=== PATIENT | female | born 1995 | race Caucasian/White ===

== ENCOUNTER 2017-03-03 08:26 | Inpatient (IN) ==
--- OUTSIDE RECORDS SUMMARY | 2017-03-03 08:33 | External Medical Summary | Continuity of Care Document ---
:1995 Author Organization [facility] Address [address] [place], [place] [id number] Phone Care Team Providers Name Role Phone Kathy Street MD Unavailable Unavailable Allergies, Adverse Reactions, Alerts Substance Reaction Severity Status No Known Drug Allergies Unknown Active Medications Medication Instructions Dosage Effective Dates (start - Status Comments stop) ORAL TABLET - Active Problems Condition Effective Dates (start - stop) Clinical Status Supervision of other high risk - pregnancies, third trimester Encounter for suprvsn of normal - , third trimester 28 weeks gestation of - Type A blood, Rh negative - Smoking (tobacco) complicating - , first trimester Encntr screen for infections w sexl - mode of transmiss Encounter for screening for oth - infec/parastc diseases Encounter for suprvsn of normal - , first trimester Encounter for screening of - mother 10 weeks gestation of - Nicotine dependence, cigarettes, - uncomplicated Supervision of other high risk - pregnancies, second trimester Type A blood, Rh negative - Supervision of other high risk - pregnancies, second trimester Encounter for suprvsn of normal - , second trimester 22 weeks gestation of - Supervision of other high risk - pregnancies, second trimester Smoking (tobacco) complicating - , second trimester 16 weeks gestation of - Type A blood, Rh negative - Supervision of other high risk - pregnancies, second trimester 26 weeks gestation of - Type A blood, Rh negative - Supervision of other high risk - pregnancies, third trimester Smoking (tobacco) complicating - , third trimester 30 weeks gestation of - Type A blood, Rh negative - Uterine size-date discrepancy, third - trimester 30 weeks gestation of - Personal history of comp of preg, chldbrth and the puerp Procedures Procedure Date Immuniz admnin, 1 vac, sngl/combo 19 Yrs + TDAP VACCINE >7 IM OB Visit No Charge Injection Administration Rhophylac 100 Units Antibody Screen, RBC Glucose test Hemoglobin count, colorimetric Hematocrit blood count Venpnctr fngr/heel/ear stick routne Results Test Name Date and Time Measure Units Reference Range Abnormal Flag Comments Panel Description: Glucose [Mass/volume] in Serum or Plasma --1 hour post 50 g glucose PO GLUCOSE, 100 mg/dL <140 N Test performed at [facility] 14:30:00 [employer] [id number] (50G)-[address] [place] [address]Pynmcnrs: MOISES LEE DO,MPH Panel Description: HEMOGLOBIN + HEMATOCRIT HEMOGLOBIN 14:30:00 11.7 g/dL 11.7-15.5 N HEMATOCRIT 14:30:00 33.7 % 35.0-45.0 L Test performed at [facility] [id number] [place] [address]Wskqdcny: MOISES LEE DO,MPH Panel Description: ANTIBODY SCREEN, RBC W/REFL ID, TITER AND AG ANTIBODY NO ANTIBODIES N Historical records indicate SCREEN, RBC 14:30:00 DETECTED the patient's plasma W/REFL ID, previously contained TITER AND AG antibodies to the D antigen.The antibody is not detectable in the current sample.Clinical correlation is suggested. Reference range No antibodies detected This assay is a screening test for the detection of red blood cell antibodies. The test is not to be used for pretransfusion screening or for the medical management of an alloimmunized . REPORT COMMENT:FASTING:NOTest performed at [facility] [id number] [place] [address]Tzznefbp: MOISES LEE DO,MPH Advance Directives Directive Yes / No Effective Date File Name Unknown Encounters Encounter Practice Location Reason(s) Diagnoses Date Provider Care Team Description For Visit Members Robin Zaidi Supervision of Dec-2 Sobbing Referring In Womens other high risk [place]. Provider: Falguni GASCA, pregnancies, 7 [address], [address], trimesterSmoking Center [address] [place] [address] (tobacco) [place], [place], complicating [address], [id number], , third [address], [place], [address]. [place] [id number] weeks Dejuan, tel: tel: gestation of [place], [phone] pregnancyType A [address], blood, Rh [place]. negative tel: [phone] Robin Zaidi Uterine size-date Nov-2 Sobbing Referring In Womens Ultrasound discrepancy, [place]. Provider: Falguni GASCA, third [email or web address] 7 [address] Kathy [address] weeks gestation [address], [address], of Center [address] [place] [address], [address] [place], [id number], 120, [place], [address]. [place] Dejuan, tel: tel: MS, [phone] [address], [place]. tel: [phone] Robin Zaidi Supervision of Nov-0 Sobbing Referring In Womens other high risk [place]. Provider: Falguni GASCA, pregnancies, 7 [address], [address], trimesterEncounte Center [address] [place] [address], r for suprvsn [place], [place], normal , [facility], [id number], third [email or web address] 120, [place], [address]. [place] weeks gestation Dejuan, tel: tel: of pregnancyType [place], [phone] [phone] A [place], [place] [address], negative [place]. tel:[phone] Robin Zaidi Supervision of Oct-2 Sobbing Referring In Womens other high risk [place]. Provider: Health PA, pregnancies, 7 700 Kathy [address], 1522, [id number] weeks Center [address] [place], gestation of [facility], [place], [place], pregnancyType A [address], [id number], blood, [place] 120, [place], [address]. [place] negative Dejuan, tel:+ tel:[phone] [place], [phone] [address], [place]. tel:[phone] Robin Zaidi Nicotine Sep-2 Sobbing Referring In Womens dependence, [place]. Provider: Falguni GASCA, cigarettes, 7 700 Kathy [address], 1522, rvision of other Center [address] [facility], high risk [place], [place], pregnancies, [address], [id number], second [address], [address]. [place] trimesterType A Dejuan, tel: tel:+[phone] blood, [place], [phone] [phone] negative [id number], [place]. tel:[phone] Robin Zaidi Supervision of Sep-2 Sobbing Referring In Womens Ultrasound other high risk [place]. Provider: Falguni PA, pregnancies, 7 700 [address], 15[address], trimesterEncounte Center [address] [facility], r for suprvsn of [place], [place], normal , [address], [id number], second [address], [address]. [place] [email or web address] weeks Dejuan, tel:+ tel:[phone] gestation of [place], [phone] [address], [place]. tel:[phone] Robin Zaidi Supervision of Aug-2 Sobbing Referring In Womens other high risk [place]. Provider: Health PA, pregnancies, 7 700 Kathy [address], 1522, trimesterSmoking Center [address] [facility], (tobacco) [place], complicating [address], [id number], , second [address], [address]. [place] [email or web address] weeks Dejuan, tel: tel: gestation of [place], [phone] pregnancyType A [address], blood, Rh [place]. negative tel: [phone] Associates [facility]an Smoking (tobacco) Sobbing Referring In Womens complicating 0-201 [place]. Provider: Health [place], , first 7 [address], 1522, screen for Center [address] [place], infections w [place], [place], mode of [address], [id number], transmissEncounte [address] [place] [address], [address]. [place] r for screening Dejuan, tel: tel: for oth [place], [phone] infec/parastc [address], diseasesEncounter [place]. for suprvsn of tel: normal , [phone] first trimesterEncounte r for screening of [id number] weeks gestation of Associates Dejuan Personal history [place] Referring In Womens of comp of preg, 8-201 [facility]. Provider: Health CAMPOS, chldbrth and the 7 [address], [address], Center [address], [place], [place], [facility], [place], [id number], [place], [address]. [place], tel: tel: [phone] , [place]. tel: [phone] Family History Family Member Diagnosis Age At Onset Maternal grandfather Colon Cancer Mother Cervical Cancer No family history of Uterine Cancer Maternal Grandmother Lung Disease No family history of Epilepsy No family history of Ovarian Cancer Mother Thyroid Disorder No family history of Pulmonary Embolism No family history of Breast Cancer No family history of Venous Thrombosis Paternal Grandmother Lung Disease No family history of Kidney Disease No family history of Osteoporosis Immunizations Vaccine Date Status Comments Tdap completed Source: New Immunization Record Rhophylac completed Source: New Immunization Record Influenza, injectable, completed Source: New Immunization Record quadrivalent, preservative free, 3 yrs or older Payers Payer name Insurance type Covered democrat ID Authorization(s) BCBS Out [place] BL [id number] [employer] [place] [id number] [employer] [place] [id number] [employer] [place] [id number] Social History Type Description Quantity Date Captured Alcohol Use Details No Caffeine Use Details Unknown Tobacco Use Status Smoking Status Current every day smoker Vital Signs Date / Height Weight BMI Pulse Blood Temperature Respiratory Body Head BMI Time: Rate Pressure Rate Surface Circumference percentile Area 131.00 21.8 114/ lbs 0 mm[Hg] 1:45 kg/m PM eter (2) Chief Complaint And Reason For Visit Unknown Chief Complaint And Reason For Visit Reason For Referral Reason For Referral Unknown Plan Of Care Date Type Action Status Goal Tobacco cessation counseling completed Goal Tobacco cessation counseling completed Appointment Khushi Singh BOOKED Future Order: Radiology Order Complete OB Ultrasound > 14 Ordered Weeks ([id number]) Future Order: Radiology Order Ultrasound OB Follow-up ([id number]) Ordered Date Type Problem Goal Intervention Status Start Date Unknown. History Of Present Illness Encounter Date Complaint History Of Present Illness This patient has no known history of present illness Functional Status Encounter Date Functional Assessment Cognitive Assessment Unknown Medications Administered Medication Instructions Dosage Effective Dates (start - stop) Status Comments Drug Treatment Unknown Instructions Date Instruction Additional Information HIV and other routine tests risk factors identified by history anticipated course of care nutrition and weight gain counseling, special diet toxoplasmosis precautions (cats / raw meat) exercise indications for ultrasound influenza vaccine environmental / work hazards travel tobacco (ask, advise, assess, assist and arrange) alcohol illicit / recreational drugs use of any medications (including supplements, vitamins, herbs, OTC drugs) smoking counseling domestic violence seat belt use childbirth classes / hospital facilities hospital registration genetic testing new ob handbook sexual activity
--- OUTSIDE RECORDS SUMMARY | 2017-03-03 08:33 | External Medical Summary | Continuity of Care Document ---
:1994 Author Organization [facility] Address [address] [place], [place] [id number] Phone Care Team Providers Name Role Phone [...] - Type A blood, Rh negative - Personal history of comp of preg, chldbrth and the puerp Procedures Procedure Date OB Visit No Charge Immuniz admnin, 1 vac, sngl/combo 19 Yrs + Flu Vaccine - Quadrivalent Results Test Name Date and Time Measure Units Reference Range Abnormal Flag Comments Unknown Advance Directives Directive Yes / No Effective Date File Name Unknown Encounters Encounter Practice Location Reason(s) Diagnoses Date Provider Care Team Description For Visit Members Robin Zaidi Supervision of Sobbing Referring In Womens other high risk [place]. Provider: Falguni GASCA, pregnancies, 7 [address], [address], trimesterEncounte [address], for suprvsn of [place], [place], normal , [facility], , third [id number] [address], [place], [address]. [place] weeks gestation Dejuan, tel: tel: of pregnancyType [place], [phone] 476178 [place], [place] [address], negative [place]. tel: [phone] Robin Zaidi Supervision of Sobbing Referring In Womens other high risk [place]. Provider: Falguni GASCA, pregnancies, 7 [address], 1522, [email or web address] weeks Center [address] [place] [address], gestation of [place], [place], pregnancyType A [facility], [id number], blood, [place] [address], [address]. [place] negative Dejuan, tel: tel:[phone] [place], [phone] [address], [place]. tel: [phone] Robin Zaidi Nicotine Sep-2 Sobbing Referring In Womens dependence, [place]. Provider: Falguni GASCA, cigarettes, 7 [address], 1522, rvision of other [place] [address] [facility], high risk [place], [place], pregnancies, [address], [id number], second [address], [address]. [place] trimesterType A Dejuan, tel: tel: blood, Rh [place], [phone] [phone] negative [address], [place]. tel: [phone] Robin Zaidi Supervision of Oct- Sobbing Referring In Womens Ultrasound other high risk 8- [place]. Provider: Falguni GASCA, pregnancies, 7 [address], 15[address], trimesterEncounte Center [address] [place], r for suprvsn of [place], normal , [facility], [id number], [place] [address], [address]. [place] [email or web address] weeks Zaidi, tel:+ tel:+316 gestation of [place], 6263514 827232 [address], [place]. tel: [phone] Robin Zaidi Supervision of Sobbing Referring In Womens other high risk 2-201 [place]. Provider: Falguni GASCA, pregnancies, 7 700 [address], 15[address], trimesterSmoking Center [address] [place], (tobacco) [place], [place], complicating [address], [id number], , second [address], [address]. [place] [email or web address] weeks Zaidi, tel: tel:+316 gestation of [place], [phone] 951156 pregnancyType A [address], blood, Rh [place]. negative tel: [phone] Robin Zaidi Smoking (tobacco) Sobbing Referring In Womens complicating 0-201 [place]. Provider: Falguni GASCA, , first 7 [address], [address], screen for Center [address] [place], infections w sexl [place], [place], mode of [address], [id number], trans[place]Encounte [address], [address]. [place] r for screening Zaidi, tel: tel:+[phone] for oth [place], [phone] infec/parastc [address], diseasesEncounter [place]. for suprvsn of tel: normal , [phone] first trimesterEncounte r for screening of [id number] weeks gestation of Associates Dejuan Personal history Apr-2 [place] Referring In Womens of comp of preg, 8- [place]. Provider: Health CAMPOS, [place] and the 7 700 Kathy [facility] L, 1522, Center [address], [place], [place], 120, [place], [id number], [place], [address]. [place], tel:+258 tel:[phone] [address] , [place]. tel:[phone] Family History Family Member Diagnosis Age At [...] older Payers Payer name Insurance type Covered constitution party ID Authorization(s) BCBS Out Of [place] [id number] BCBS Out [place] [id number] BC[employer] [place] [id number] BC[employer] [place] [id number] Social History Type Description Quantity Date Captured Alcohol Use Details No Caffeine Use Details Unknown Tobacco Use Status Smoking Status Current every day smoker Vital Signs Date / Height Weight BMI Pulse Blood Temperature Respiratory Body Head BMI Time: Rate Pressure Rate Surface Circumference percentile Area 128.60 21.4 lbs 0 mm[Hg] 2:46 kg/m PM eter (2) Chief Complaint And Reason For Visit Unknown Chief Complaint And Reason For Visit Reason For Referral Reason For Referral Unknown Plan Of Care Date Type Action Status Goal Tobacco cessation counseling completed Goal Tobacco cessation counseling completed Appointment Khushi Singh BOOKED Appointment Khushi Singh BOOKED Future Order: Radiology Order Complete OB Ultrasound > 14 Ordered Weeks ([id number]) Date Type Problem Goal Intervention Status Start [...]
--- OUTSIDE RECORDS SUMMARY | 2017-03-03 08:33 | External Medical Summary | Continuity of Care Document ---
:1994 Author Organization [facility] Address [address] [place], [place] [address] Phone Care Team Providers Name Role Phone Kathy Street MD Unavailable Unavailable Allergies, Adverse Reactions, Alerts Substance Reaction Severity Status No Known Drug Allergies Unknown Active Medications Medication Instructions Dosage Effective Dates (start - Status Comments stop) ORAL TABLET - Active Problems Condition Effective Dates (start - stop) Clinical Status Smoking (tobacco) complicating - , first trimester Encntr screen for infections w sexl - mode of transmiss Encounter for screening for oth - infec/parastc diseases Encounter for suprvsn of normal - , first trimester Encounter for screening of - mother 10 weeks gestation of - Personal history of comp of preg, chldbrth and the puerp Procedures Procedure Date Unknown Results Test Name Date and Time Measure Units Reference Range Abnormal Flag Comments Unknown Advance Directives Directive Yes / No Effective Date File Name Unknown Encounters Encounter Practice Location Reason(s) Diagnoses Date Provider Care Team Description For Visit Members [facility] Sobbing In Womens 3-201 [place]. Health [place], 7 700 [address], [place], [place], [address] [id number], 120, [place] Dejuan, tel:+[phone] [place], [phone], [place]. tel:[phone] Robin Zaidi Smoking (tobacco) Sobbing Referring In Womens complicating 0-201 [place]. Provider: Health [place], , first 7 700 Kathy [address] trimesterEncntr Medical Jad Hernandez, 1522, screen for Center [address] [place], infections w [address], [place], mode of [address] [place], [id number], transmissEncounter [address], [place], [address]. [place] for screening for Zaidi, tel: tel: ot infec/parastc [place], [phone] diseasesEncounter [address], for suprvsn of [place]. normal , tel: first [phone] trimesterEncounter for screening of [id number] weeks gestation of Associates Dejuan Personal history of [place] Referring In Womens comp of preg, 8 [place]. Provider: Health [place], [place] and the 7 700 [facility] L, 1522, Center [address], [place], [place], 120, [place], [id number], [place], [address]. [place], tel: tel: [phone] , [place]. tel: [phone] Family History Family Member Diagnosis Age At [...] of Osteoporosis Immunizations Vaccine Date Status Comments Unknown Payers Payer name Insurance type Covered constitution party ID Authorization(s) BCBS Out Of [place] [id number] Social History Type Description Quantity Date Captured Unknown Vital Signs Date / Height Weight BMI Pulse Blood Temperature Respiratory Body Head BMI Time: Rate Pressure Rate Surface Circumference percentile Area Unknown Chief Complaint And Reason For Visit Unknown Chief Complaint And Reason For Visit Reason For Referral Reason For Referral Unknown Plan Of Care Date Type Action Status Goal Tobacco cessation counseling completed Goal Tobacco cessation counseling completed Appointment Khushi Singh BOOKED Date Type Problem Goal Intervention Status Start [...] influenza vaccine environmental / work hazards travel sexual activity tobacco (ask, advise, assess, assist and arrange) alcohol illicit / recreational drugs use of any medications (including supplements, vitamins, herbs, OTC drugs) smoking counseling domestic violence seat belt use childbirth classes / hospital facilities hospital registration genetic testing new ob handbook
--- OUTSIDE RECORDS SUMMARY | 2017-03-03 08:33 | External Medical Summary | Continuity of Care Document ---
:1994 Author Organization [facility] Address [address] [place], [place] [address] Phone Care Team Providers Name Role Phone Kathy Street MD Unavailable Unavailable Allergies, Adverse Reactions, Alerts Substance Reaction Severity Status No Known Drug Allergies Unknown Active Medications Medication Instructions Dosage Effective Dates (start - Status Comments stop) ORAL TABLET - Active Problems Condition Effective Dates (start - stop) Clinical Status Supervision of other high risk - pregnancies, third trimester Low weight gain in , third - trimester Smoking (tobacco) complicating - , third trimester Type A blood, Rh negative - Smoking [...] other high risk - pregnancies, third trimester Low weight gain in , third - trimester 35 weeks gestation of - Type A blood, Rh negative - Supervision of other high risk - pregnancies, third trimester Encounter for suprvsn of normal - , third trimester 28 weeks gestation of - Type A blood, Rh negative - Low weight gain in , third - trimester 35 weeks gestation of - Uterine size-date discrepancy, third - trimester 30 weeks gestation of - Personal history of comp of preg, chldbrth and the puerp Procedures Procedure Date OB Visit No Charge Results Test Name Date and Time Measure Units Reference Range Abnormal Flag Comments Unknown Advance Directives Directive Yes / No Effective Date File Name Unknown Encounters Encounter Practice Location Reason(s) Diagnoses Date Provider Care Team Description For Visit Members [facility] Supervision of Sobbing Referring In Womens other high risk [place]. Provider: Falguni GASCA, pregnancies, [address], 1522, trimesterLow Center [facility], weight gain in [place], , third [address] [place], [id number], [email or web address] weeks 120, [place], [address]. [place] gestation of Zaidi, tel:+620 tel:+316 pregnancyType [place], [id number] blood, Rh 13340, negative [place]. tel: [phone] Robin Zaidi Low weight gain Jan- Sobbing Referring In Womens Ultrasound in , [place]. Provider: Falguni GASCA, third [email or web address] [address] weeks gestation Medical Jad L, 1522, of Center [address] [facility], [place], [place], [address] [place], [id number], 120, [place], [address]. [place] Dejuan, tel: tel:316 [place], [phone] [address], [place]. tel: [phone] Robin Zaidi Supervision of Jan- Sobbing Referring In Womens other high risk [place]. Provider: Health PA, pregnancies, [address], 1522, trimesterLow Center [address] [facility], weight gain in [place], , third [address] [place], [id number], trimester[place]oking 120[place], [address]. [place] (tobacco) Dejuan, tel: tel: complicating [place], [phone] , third [address], trimesterType A [place]. blood, Rh tel: negative [phone] Robin Zaidi Supervision of Dec-2 Sobbing Referring In Womens other high risk [place]. Provider: Health PA, pregnancies, [address], 1522, trimesterSmoking Center [address] [facility], (tobacco) [place], complicating [address] [place], [id number], , third 120[place], [address]. [place] [email or web address] weeks Dejuan, tel: tel:3162 gestation of [place], [phone] [phone] pregnancyType A [address], blood, Rh [place]. negative tel: [phone] Robin Zaidi Uterine size-date Dec-2 Sobbing Referring In Womens Ultrasound discrepancy, [place]. Provider: Health PA, third [email or web address] [address] weeks gestation [address], 1522, of Center [facility] S [place], [address] [place], [id number], 120, [place], [address]. [place] Dejuan, tel: tel:+3162 [place], [phone] [address], [place]. tel: [phone] Robin Zaidi Supervision of Nov-0 Sobbing Referring In Womens other high risk [place]. Provider: Health PA, pregnancies, 7 [address], 15[address], trimesterEncounte Center [address] [place], r for suprvsn of [place], normal , [facility], [id number], third [email or web address] 120, [place], [address]. [place] weeks gestation Zaidi, tel:+ tel:+3162 of pregnancyType [place], [id number] 452005 A blood, Rh [address], negative [place]. tel: [phone] Robin Zaidi Supervision of Oct-2 Sobbing Referring In Womens other high risk [place]. Provider: Health PA, pregnancies, [address], 1522, [email or web address] weeks Center [address] [place], gestation of [place], pregnancyType A [facility], [id number], blood, [place] 120[place], [address]. [place] negative Dejuan, tel: tel:+3162 [place], [phone] 878754 [address], [place]. tel: [phone] Robin Zaidi Nicotine Sep-2 Sobbing Referring In Womens dependence, [place]. Provider: Health PA, cigarettes, [address], 1522, rvision of other Center [address] [place], high risk [place], pregnancies, [address] [place], [id number], second 120[place], [address]. [place] trimesterType A Zaidi, tel:+ tel:+3162 blood, [place], [phone] negative [address], [place]. tel: [phone] Robin Zaidi Supervision of Sep-2 Sobbing Referring In Womens Ultrasound other high risk [place]. Provider: Health PA, pregnancies, 7 [address], 1522, trimesterEncounte Center [address] [place], [facility] [place], normal , [facility], [id number], second [address], [address]. [place] [email or web address] weeks Dejuan, tel:+ tel:+3162 gestation of [place], [phone] 771365 [address], [place]. tel: [phone] Robin Zaidi Supervision of Aug-2 Sobbing Referring In Womens other high risk 2-201 [place]. Provider: Health CAMPOS, pregnancies, [address], 1522, trimesterSmoking Center [address] [place], (tobacco) [place], complicating [address] [place], [id number], , second [address], [address]. [place] [email or web address] weeks Zaidi, tel: tel: gestation of [place], [phone] pregnancyType A [address], blood, Rh [place]. negative tel: [phone] [facility] Smoking (tobacco) Sobbing Referring In Womens complicating 0-201 [place]. Provider: Falguni GASCA, , first [address], 1522, screen for Center [address] [place], infections w sexl [place], mode of [address] [place], [id number], trans[place]oun[place] [address], [address]. [place] r for screening Zaidi, tel: tel: for oth [place], [phone] infec/parastc 61973, diseasesEncounter [place]. for suprvsn of tel: normal , [phone] first trimesterEncounte r for screening of [id number] weeks gestation of [facility] Personal history Apr-2 [place] Referring In Womens of comp of preg, 8-201 [place]. Provider: Falguni GASCA, franklin and the [address], 15[address], Center [address], [place], [place], 120, [place], [id number], [place], [address]. [place], tel: tel: [phone] , [place]. tel: [phone] Family History Family Member Diagnosis Age At [...] party ID Authorization(s) BCBS Out Of State [id number] BCBS Out Of State [id number] BCBS Out Of [place] [id number] BCBS Out Of [place] [id number] Social History Type Description Quantity Date Captured Alcohol Use Details No Caffeine Use Details Unknown Tobacco Use Status Smoking Status Current every day smoker Vital Signs Date / Height Weight BMI Pulse Blood Temperature Respiratory Body Head BMI Time: Rate Pressure Rate Surface Circumference percentile Area 21.7 1 10:04 kg/m AM eter (2) 133.90 22.2 122/67 2017 lbs 8 mm[Hg] 10:08 kg/m AM eter (2) Chief Complaint And Reason For Visit Unknown Chief Complaint And Reason For Visit Reason For Referral Reason For Referral Unknown Plan Of Care Date Type Action Status Goal Tobacco cessation counseling completed Goal Tobacco cessation counseling completed Appointment Khushi Singh BOOKED Future Order: Radiology Order Complete OB Ultrasound > 14 Ordered Weeks ([id number]) Future Order: Radiology Order Ultrasound OB Follow-up ([id number]) Ordered Future Order: Radiology Order Ultrasound OB Follow-up ([id number]) Ordered Date Type Problem Goal Intervention Status [...]
--- OUTSIDE RECORDS SUMMARY | 2017-03-03 08:33 | External Medical Summary | Continuity of Care Document ---
:1994 Author Organization [facility] Address [address] [place], [place] [id number] Phone Care Team Providers Name Role Phone [...] Team Description For Visit Members Robin Zaidi Nicotine Sep-2 Sobbing Referring In Womens dependence, [place]. Provider: Health PA, cigarettes, [address], 1522, rvision of other Center [address] [place], high risk [place], [place], pregnancies, [address] [place], [id number], second 120[place], [address]. [place] trimesterType A Dejuan, tel:+ tel:+3162 blood, Rh [place], [phone] [id number] negative [address], [place]. tel: [phone] Robin Zaidi Supervision of Sep-2 Sobbing Referring In Womens Ultrasound other high risk [place]. Provider: Health PA, pregnancies, [address], 1522, trimesterEncounte Center [address] [place], r for suprvsn of [place], [place], normal , [address] [place], [id number], second [address], [address]. [place] [email or web address] weeks Dejuan, tel: tel:+3162 gestation of [place], [phone] [phone] [address], [place]. tel: [phone] [facility] Sep-2 Lopez In Womens [facility]- [facility]. Health [facility], [address], [address], [place], [place], [id number], , [place]. [place] tel: tel: [phone] Robin Zaidi Supervision of Aug- Sobbing Referring In Womens other high risk 2- [place]. Provider: Health PA, pregnancies, [address], 1522, trimesterSmoking Center [address] [facility], (tobacco) [place], complicating [address], [id number], , second [address], [address]. [place] [email or web address] weeks Dejuan, tel:+ tel:+3162 gestation of [place], [phone] 040600 pregnancyType A [address], blood, Rh [place]. negative tel: [phone] Robin Zaidi Smoking (tobacco) Sobbing Referring In Womens complicating 0-201 [place]. Provider: Health CAMPOS, , first [address], 1522, screen for Center [address] [place], [place], mode of [address], [id number], [place]oun[place] [address], [address]. [place] r for screening Zaidi, tel:+ tel:+3162 for oth [place], [phone] infec/parastc 31621, diseasesEncsan [facility] [place]. for suprvsn of tel: normal , [phone] first trimesterEncounte r for screening of weeks gestation of [facility] Personal history May- Mclaughlin Referring In Womens of comp of preg, 8-201 [place]. Provider: Health CAMPOS, franklin and the [address], 1522, Center [address] [facility] [place], [address], [place], [place], 120, [place], [id number], [place], [address]. [place], tel: tel: [phone] 517226 , [place]. tel: [phone] Family History Family Member Diagnosis Age At [...] Unknown Payers Payer name Insurance type Covered democrat ID Authorization(s) BC Out Of State [id number] Social History Type Description Quantity Date Captured [...] Complete OB Ultrasound > 14 Ordered Weeks (39230) Date Type Problem Goal Intervention Status Start [...]
--- OUTSIDE RECORDS SUMMARY | 2017-03-03 08:33 | External Medical Summary | Continuity of Care Document ---
:1994 Author Organization [facility] Address [address] [place], [place] [address] Phone Care Team Providers Name Role Phone Kathy Street MD Unavailable Unavailable Allergies, Adverse Reactions, Alerts Substance Reaction Severity Status No Known Drug Allergies Unknown Active Medications Medication Instructions Dosage Effective Dates (start - Status Comments stop) ORAL TABLET - Active Problems Condition Effective Dates (start - stop) Clinical Status Uterine size-date discrepancy, third - trimester 30 weeks gestation of - Smoking (tobacco) complicating - , first [...] chldbrth and the puerp Procedures Procedure Date Ultrasnd preg uterus, flwup/repeat Results Test Name Date and Time Measure Units Reference Range Abnormal Flag Comments Unknown Advance Directives Directive Yes / No Effective Date File Name Unknown Encounters Encounter Practice Location Reason(s) Diagnoses Date Provider Care Team Description For Visit Members Robin Zaidi Supervision of Sobbing Referring In Womens other high risk [place]. Provider: Health PA, pregnancies, 7 [address], 1522, trimesterLow Center [address] [facility], weight gain in [place], , third [address] [place], [id number], [place], [address]. [place] (tobacco) Dejuan, tel: tel: complicating [place], [phone] , third [address], trimesterType A [place]. blood, Rh tel: negative [phone] Robin Zaidi Supervision of Dec- Sobbing Referring In Womens other high risk [place]. Provider: Health PA, pregnancies, [address], 1522, trimesterSmoking Center [address] [facility], (tobacco) [place], [place], complicating [address] [place], [id number], , third 120[place], [address]. [place] [id number] weeks Dejuan, tel: tel:+3162 gestation of [place], [phone] 644169 pregnancyType A [address], blood, Rh [place]. negative tel:[phone] Robin Zaidi Uterine size-date Nov-2 Sobbing Referring In Womens Ultrasound discrepancy, [place]. Provider: Falguni GASCA, third [email or web address] [address] weeks gestation [address], 1522, of Center [address] [place], [place], [address] [place], [id number], 120[place], [address]. [place] Dejuan, tel: tel:+316 [place], [phone] [address], [place]. tel:+[phone] Robin Zaidi Supervision of Nov-0 Sobbing Referring In Womens other high risk [place]. Provider: Falguni GASCA, pregnancies, [address], 1522, trimesterEncounte Center [address] [facility], r for suprvsn of [place], normal , [address] [place], [id number], third [email or web address] 120, [place], [address]. [place] weeks gestation Dejuan, tel: tel: of pregnancyType [place], [phone] 111138 A blood, Rh [address], negative [place]. tel: [phone] Robin Zaidi Supervision of Oct-2 Sobbing Referring In Womens other high risk [place]. Provider: Falguni GASCA, pregnancies, [address], 1522, [email or web address] weeks Center [address] [place] [address], gestation of [place], pregnancyType A [facility], [id number], blood, [place] 120[place], [address]. [place] negative Dejuan, tel: tel:+316 [place], [phone] [phone] [address], [place]. tel:[phone] Robin Zaidi Nicotine Sep-2 Sobbing Referring In Womens dependence, [place]. Provider: Falguni GASCA, cigarettes, [address], 1522, rvision of other Center [address] [facility], high risk [place], pregnancies, [address] [place], [id number], [place] 120[place], [address]. [place] trimesterType A Dejuan, tel: tel:+ blood, Rh [place], [phone] [phone] negative [address], [place]. tel: [phone] Robin Zaidi Supervision of Oct- Sobbing Referring In Womens Ultrasound other high risk 8-201 [place]. Provider: Health PA, pregnancies, 7 [address], 1522, trimesterEncounte Center [address] [place], r for suprvsn of [place], normal , [address] [place], [id number], second 120, [place], [address]. [place] [email or web address] weeks Dejuan, tel:+ tel:+316 gestation of [place], 7746457 773250 [address], [place]. tel: [phone] Robin Zaidi Supervision of Sobbing Referring In Womens other high risk 2-201 [place]. Provider: Health PA, pregnancies, 7 [address], 1522, trimesterSmoking Center [address] [place], (tobacco) [place], [place], complicating [address] [place], [id number], , second 120[place], [address]. [place] [email or web address] weeks Dejuan, tel: tel:+316 gestation of [place], [phone] 529782 pregnancyType A [address], blood, Rh [place]. negative tel: [phone] Robin Zaidi Smoking (tobacco) Sobbing Referring In Womens complicating 0-201 [place]. Provider: Falguni GASCA, , first [address], 1522, screen for Center [address] [place], infections w sexl [place], mode of [address] [place], [id number], trans[place]ounte [address], [address]. [place] r for screening Dejuan, tel:+ tel:+316 for oth [place], [phone] infec/parastc 68583, diseasesEncounter [place]. for suprvsn of tel:+03-22 normal , [phone] first trimesterEncounte r for screening of [email or web address] weeks gestation of [facility] Personal history Apr-2 [place] Referring In Womens of comp of preg, 8- [facility]. Provider: Health CAMPOS, franklin and the 7 [address] [facility] L, 1522, Center [address], [place], [place], 120, [place], [id number], [place], [address]. [place], tel:+186 tel:[phone] [id number] 171794 , [place]. tel:+[phone] Family History Family Member Diagnosis Age At [...] older Payers Payer name Insurance type Covered republican ID Authorization(s) BCBS Out Of State [id number] BCBS Out Of [place] [id number] BCBS Out Of [place] [id number] BCBS Out Of [place] [id number] Social History Type Description Quantity Date Captured [...] Khushi Singh BOOKED Future Order: Radiology Order Ultrasound OB Follow-up ([id number]) Ordered Future Order: Radiology Order Complete OB Ultrasound > 14 Ordered Weeks ([id number]) Date Type Problem Goal Intervention Status Start [...]
--- OUTSIDE RECORDS SUMMARY | 2017-03-03 08:33 | External Medical Summary | Continuity of Care Document ---
:1994 Author Organization [facility] Address [address] [place], [place] [id number] Phone Care Team Providers Name Role Phone [...] second trimester 22 weeks gestation of - Smoking (tobacco) complicating [...] chldbrth and the puerp Procedures Procedure Date Ultrasound exam of preg uterus, complete Results Test Name Date and Time Measure Units Reference Range Abnormal Flag Comments Unknown Advance Directives Directive Yes / No Effective Date File Name Unknown Encounters Encounter Practice Location Reason(s) Diagnoses Date Provider Care Team Description For Visit Members [facility] Nicotine Sep-2 Sobbing Referring In Womens dependence, [place]. Provider: Falguni GASCA, cigarettes, [address], 1522, rvision of other Center [address] [place], high risk [facility], [place], [place], pregnancies, [address] [place], [id number], second [address], [address]. [place] trimesterType A Dejuan, tel: tel:+[phone] blood, Rh [place], [phone] negative [address], [place]. tel: [phone] Robin Zaidi Supervision of Sep-2 Sobbing Referring In Womens Ultrasound other high risk - [place]. Provider: Falguni GASCA, pregnancies, [address], 1522, trimesterEncounte Center [address] [place], r for suprvsn of [place], [place], normal , [address], , second [address], [address]. [place] weeks Dejuan, tel: tel:+3162 gestation of [place], [phone] [phone] [address], [place]. tel: [phone] Robin Zaidi Supervision of Aug- Sobbing Referring In Womens other high risk - [place]. Provider: Falguni GASCA, pregnancies, [address], 1522, trimesterSmoking Center [address] [place], (tobacco) [place], [place], complicating [address], , , second [address], [address]. [place] [email or web address] weeks Dejuan, tel:+ tel:+3162 gestation of [place], [phone] 919407 pregnancyType A [address], blood, Rh [place]. negative tel: [phone] Robin Zaidi Smoking (tobacco) Aug- Sobbing Referring In Womens complicating 0-201 [place]. Provider: Falguni GASCA, , first [address], 1522, screen for Center [address] [place], infections w sexl [place], mode of [address], [id number], trans[place]ounte [address], [address]. [place] r for screening Zaidi, tel: tel: for oth [place], [phone] infec/parastc 90039, diseasesEncounter [place]. for suprvsn of tel: normal , [phone] first trimesterEncounte r for screening of [email or web address] weeks gestation of [facility] Personal history Mclaughlin Referring In Womens of comp of preg, 8-201 [place]. Provider: Health CAMPOS, franklin and the 7 700 Kathy [facility] L, 1522, Center [address], [place], [place], 120, [place], [id number], [place], [address]. [place], tel: tel:+ [phone] [address] , [place]. tel: [phone] Family History Family Member Diagnosis Age At [...] Unknown Payers Payer name Insurance type Covered green party ID Authorization(s) BCBS Out Of State [id number] Social History Type Description Quantity Date Captured [...] Complete OB Ultrasound > 14 Ordered Weeks (00941) Date Type Problem Goal Intervention Status Start [...]
--- OUTSIDE RECORDS SUMMARY | 2017-03-03 08:33 | External Medical Summary | Clinical Summary ---
:1994 Author Organization [facility] Address [address] [place] [address] Phone Allergies No Known Allergies Current Medications Prescription Sig. Disp. Refills Start Date End Date Status docusate sodium (COLACE) take 1 capsule 0 08/10/2012 Active 100 MG capsule (100MG) by oral route every day at bedtime as needed 27-0.8 MG TABS take 1 tablet by 0 08/10/2012 Active oral route every day hydrocodone-acetaminophen take 1 tablet by 0 08/10/2012 Active (HYDROCODONE-ACETAMINOPHE oral route every 4 N) 5-325 MG - 6 hours as needed for pain ibuprofen (ADVIL,MOTRIN) take 1 tablet 0 08/10/2012 Active 800 MG tablet (800MG) by oral route 3 times every day with food .reconcile (MEDICATION No Sig 1 0 08/10/2012 Active LIST IMPORTED) Active Problems Not on file Family History Medical History Relation Name Comments Other Other Mother - Cancer, cervical Other Other Family History Comments - No history of breast, ovary, endometrial or colon cancer. Relation Name Status Comments Mother Alive Other Other Social History Tobacco Use Types Packs/Day Years Used Date Current Every Day Smoker Comments: Smoking History Packs/day: Daily/Cigarettes/1/2 pack Sex Assigned at Date Recorded Not on file Last Filed Vital Signs Vital Sign Reading Time Taken Blood Pressure 102/54 04/24/2012 10:52 AM [employer] Pulse - - Temperature - - Respiratory Rate - - Oxygen Saturation - - Inhaled Oxygen Concentration - - Weight 54 kg (119 lb) 04/25/2012 8:11 AM [employer] Height 165.7 cm (5' 5.25") 04/25/2012 8:11 AM [employer] Body Mass Index 19.65 04/25/2012 8:11 AM [employer] Plan of Treatment Health Maintenance Due Date Last Done Comments HPV Vaccines (1 of 3 - Female 3 Dose Series) 2005 Varicella Vaccines (1 of 2 - 2 Dose Adolescent Series) 06/12/2007 MenB Vaccine (Bexsero) (1 of 2) 2010 DTaP,Tdap,and Td Vaccines (1 - Tdap) 2013 CERVICAL CANCER SCREENING 06/12/2015 Influenza Vaccine (#1) 2016 Results Not on filefrom Last 3 Months
--- OUTSIDE RECORDS SUMMARY | 2017-03-03 08:34 | External Medical Summary | Continuity of Care Document ---
:1995 Author Organization [facility] Address [address] [place], [place] [id number] Phone Care Team Providers Name Role Phone [...] Sobbing Referring In Womens other high risk 1 [place]. Provider: Health PA, pregnancies, 7 [address], 1522, trimesterLow Center [address] [facility], weight gain in [place], [place], , third [address] [place], , trimesterSmoking 120[place], [address]. [place] (tobacco) Deju[place], tel:+ tel: complicating ME, [phone] , third [address], trimesterType A [place]. blood, Rh tel: negative [phone] Robin Zaidi Supervision of Sobbing Referring In Womens other high risk [place]. Provider: Health PA, pregnancies, 7 [address], 1522, trimesterSmoking Center [address] [facility], (tobacco) [place], [place], complicating [address] [place], [id number], , third 120[place], [address]. [place] [email or web address] weeks Dejuan, tel: tel:+ gestation of [place], [phone] pregnancyType A [address], blood, Rh [place]. negative tel:[phone] Robin Zaidi Uterine size-date Nov-2 Sobbing Referring In Womens Ultrasound discrepancy, [place]. Provider: Falguni GASCA, third [email or web address] [address], 15[address], of Center [address] [facility], [place], [address] [place], [id number], 120, [place], [address]. [place], tel: tel:+[phone] [place], [phone] 670974 [address], [place]. tel:[phone] Robin Zaidi Supervision of Nov-0 Sobbing Referring In Womens other high risk [place]. Provider: Falguni GASCA, pregnancies, 7 [address], 1522, trimesterEncounte Center [address] [place] [address], r for suprvsn of [place], normal , [facility], [id number], third [email or web address] 120, [place], [address]. [place] weeks gestation Dejuan, tel: tel:+ of pregnancyType ME, [phone] [id number] A blood, Rh [address], negative [place]. tel: [phone] Robin Zaidi Supervision of Oct-2 Sobbing Referring In Womens other high risk [place]. Provider: Falguni GASCA, pregnancies, [address], 1522, weeks Center [address] [place] [address], gestation of [place], [place], pregnancyType A [facility], [id number], blood, [place] 120[place], [address]. [place] negative Dejuan, tel: tel:+[phone] [place], [phone] 974167 [address], [place]. tel:[phone] Robin Zaidi Nicotine Sep-2 Sobbing Referring In Womens dependence, [place]. Provider: Falguni GASCA, cigarettes, [address], 1522, rvision of other Center [address] [facility], high risk [place], pregnancies, [address] [place], [id number], second 120[place], [address]. [place] trimesterType A Dejuan, tel: tel: blood, Rh [place], [phone] negative [address], [place]. tel: [phone] Robin Zaidi Supervision of Oct- Sobbing Referring In Womens Ultrasound other high risk 8- [place]. Provider: Falguni GASCA, pregnancies, 7 [address], 1522, trimesterEncounte Center [address] [place], r for suprvsn of [place], normal , [facility], [id number], second 120[place], [address]. [place] [email or web address] weeks [place], tel:+ tel:+316 gestation of [place], [phone] 717709 [address], [place]. tel: [phone] Robin Zaidi Supervision of Sobbing Referring In Womens other high risk 2-201 [place]. Provider: Falguni GASCA, pregnancies, 7 [address], 1522, trimesterSmoking Center [address] [place], (tobacco) [place], complicating [address], [id number], , second 120[place], [address]. [place] [email or web address] weeks [place], tel: tel:+316 gestation of ME, [phone] pregnancyType A [address], blood, Rh [place]. negative tel: [phone] Robin Zaidi Smoking (tobacco) Sobbing Referring In Womens complicating 0-201 [place]. Provider: Falguni GASCA, , first [address], 1522, screen for Center [address] [place], infections w sexl [place], [place], mode of [address] [place], [id number], trans[place]ounte [address], [address]. [place] r for screening [place], tel: tel:+316 for oth [place], [phone] infec/parastc [address], diseasesEncounter [place]. for suprvsn of tel: normal , [phone] first trimesterEncounte r for screening of weeks gestation of Associates Dejuan Personal history Apr-2 [place]cl[place] Referring In Womens of comp of preg, 8- Lula. Provider: Health CAMPOS, [place] and the 7 [address] [facility] L, 1522, Center [address], [place], [place], 120, [place], [id number], [place], [address]. [place], tel:+643 tel:[phone] [phone] , [place]. tel:[phone] Family History Family Member Diagnosis Age At [...] party ID Authorization(s) BCBS Out Of State [id number] BCBS Out Of State [id number] BCBS Out Of State [id number] BCBS Out Of [place] [id number] Social History Type Description Quantity Date Captured Alcohol Use Details No Caffeine Use Details Unknown Tobacco Use Status Smoking Status Current every day smoker Vital Signs Date / Height Weight BMI Pulse Blood Temperature Respiratory Body Head BMI Time: Rate Pressure Rate Surface Circumference percentile Area 130.50 21.7 105/68 2017 lbs 1 mm[Hg] 10:15 kg/m AM eter (2) 0 10:12 kg/m AM eter (2) Chief Complaint And Reason For Visit Unknown Chief Complaint And Reason For Visit Reason For Referral Reason For Referral Unknown Plan Of Care Date Type Action Status Goal Tobacco cessation counseling completed Goal Tobacco cessation counseling completed Appointment Khushi Singh BOOKED Appointment Khushi Singh BOOKED Future Order: Radiology Order Complete OB Ultrasound > 14 Ordered Weeks (34013) Future Order: Radiology Order Ultrasound OB Follow-up (11936) Ordered Date Type Problem Goal Intervention Status [...]
--- OUTSIDE RECORDS SUMMARY | 2017-03-03 08:34 | External Medical Summary | Continuity of Care Document ---
:1994 Author Organization [facility] Address [address] [place], [place] [phone] Phone Care Team Providers Name Role Phone [...] Care Team Description For Visit Members Robin Jackson Sep-2 Sobbing Referring In Womens dependence, [place]. Provider: Falguni GASCA, cigarettes, [address], 1522, rvision of other Center [address] [place] [address], high risk [place], [place], pregnancies, [address] [place], [id number], second 120[place], [address]. [place] trimesterType A Dejuan, tel:+ tel:+[phone] blood, Rh [place], [phone] negative [address], [place]. tel: [phone] Robin Zaidi Supervision of Sep-2 Sobbing Referring In Womens Ultrasound other high risk [place]blong. Provider: Falguni GASCA, pregnancies, [address], [address], trimesterEncounte [address], r for suprvsn of [place], [place], normal , [address] [place], [id number], [place] 120[place], [address]. [place] [email or web address] weeks Dejuan, tel: tel:+[phone] gestation of [place], [phone], [place]. tel: [phone] Robin Zaidi Sep-2 Sobbing Referring In Womens Oblong. Provider: Falguni GASCA, [address], [address], [address], [address] [place], [id number], 120[place], [address]. [place], tel: tel:[phone] [place], [phone] [address], [place]. tel: [phone] Robin Zaidi Supervision of Aug-2 Sobbing Referring In Womens other high risk - Oblong. Provider: Falguni GASCA, pregnancies, [address], 1522, trimesterSmoking [address] (tobacco) [place], [place], complicating [address] [place], [id number], , second 120[place], [address]. [place] [email or web address] weeks Dejuan, tel: tel:[phone] gestation of [place], [phone] [phone] pregnancyType A [address], blood, Rh [place]. negative tel:[phone] Associates Dejuan Smoking (tobacco) Sobbing Referring In Womens complicating 0-201 Buster. Provider: Health CAMPOS, , first [address], 15[address], screen for Center [address] [place], infections [place], mode of [address] [place], [id number], transmissEncounte 120[place], [address]. [place] r for screening Dejuan, tel: tel: for oth [place], [phone] infec/parastc [address], diseasesEncounter [place]. for suprvsn of tel: normal , [phone] first trimesterEncounte r for screening of weeks gestation of Associates Dejuan Personal history Apr- Mcl[place] Referring In Womens of comp of preg, 8-201 [facility]. Provider: Falguni GASCA, trevorrtaraceli and the [address], [address], Center [address] [place], Dr, [place], [place], 120, [place], [id number], [place], [address]. [place], tel: tel: [phone] , [place]. tel: [phone] Family History Family Member Diagnosis Age At [...] Unknown Payers Payer name Insurance type Covered republican ID Authorization(s) BCBS Out Of State [id number] Social History Type Description Quantity Date Captured Alcohol Use Details No Caffeine Use Details Unknown Tobacco Use Status Smoking Status Current every day smoker Vital Signs Date / Height Weight BMI Pulse Blood Temperature Respiratory Body Head BMI Time: Rate Pressure Rate Surface Circumference percentile Area 9 4:24 kg/m PM eter (2) Chief Complaint And Reason For Visit Unknown Chief Complaint And Reason For Visit Reason For Referral Reason For Referral Unknown Plan Of Care Date Type Action Status Goal Tobacco cessation counseling completed Goal Tobacco cessation counseling completed Appointment Khushi Singh BOOKED Future Order: Radiology Order Complete OB Ultrasound > 14 Ordered Weeks ([id number]) Date Type Problem Goal Intervention Status Start [...]
--- OUTSIDE RECORDS SUMMARY | 2017-03-03 08:34 | External Medical Summary | Continuity of Care Document ---
:1994 Author Organization [facility] Address [address] [place], [place] [phone] Phone Care Team Providers Name Role Phone [...] chldbrth and the puerp Procedures Procedure Date Initial OB Visit No Charge - ANGLE FURNACEMAN OB Prepayment Agreement Infct antign, chlamydia trac, ampl Neisseria Gonorrhoeae, Amplification Urine Culture OB Panel With An HIV Venpnctr fngr/heel/ear stick routne Cult, bactr, ident isolate, urine RBC antibody identification, each Cesar test, indirect Results Test Name Date and Time Measure Units Reference Range Abnormal Flag Comments Panel Description: OBSTETRIC PANEL WHITE BLOOD CELL 11.4 Thousand/uL 3.8-10.8 H COUNT 16:42:00 RED BLOOD CELL 4.07 Million/uL 3.80-5.10 N COUNT 16:42:00 HEMOGLOBIN 12.5 g/dL 11.7-15.5 N 16:42:00 HEMATOCRIT 37.0 % 35.0-45.0 N 16:42:00 MCV 90.9 fL 80.0-100.0 N 16:42:00 MCH 30.7 pg 27.0-33.0 N 16:42:00 MCHC 33.8 g/dL 32.0-36.0 N 16:42:00 RDW 12.3 % 11.0-15.0 N 16:42:00 PLATELET COUNT 185 Thousand/uL 140-400 N 16:42:00 MPV 11.4 fL 7.5-12.5 N 16:42:00 ABSOLUTE 8368 cells/uL 4051-3954 H NEUTROPHILS 16:42:00 ABSOLUTE 2155 cells/uL 850-3900 N LYMPHOCYTES 16:42:00 ABSOLUTE 787 cells/uL 200-950 N MONOCYTES 16:42:00 ABSOLUTE 57 cells/uL 15-500 N EOSINOPHILS 16:42:00 ABSOLUTE 34 cells/uL 0-200 N BASOPHILS 16:42:00 NEUTROPHILS 73.4 % N 16:42:00 LYMPHOCYTES 18.9 % N 16:42:00 MONOCYTES 6.9 % N 16:42:00 EOSINOPHILS 0.5 % N 16:42:00 BASOPHILS 0.3 % N 16:42:00 ANTIBODY SCREEN, POSITIVE A Identification RBC W/REFL ID, 16:42:00 and titer to TITER AND AG follow Reference range No antibodies detected This assay is a screening test for the detection of red blood cell antibodies. The test is not to be used for pretransfusion screening or for the medical management of an alloimmunized . ABO GROUP A 16:42:00 RH TYPE RH (D) 16:42:00 NEGATIVE RPR (DX) W/REFL NON-REACTIVE NON-REACTIV N TITER AND 16:42:00 E CONFIRMATORY TESTING HEPATITIS B NON-REACTIVE NON-REACTIV N SURFACE ANTIGEN 16:42:00 E RUBELLA ANTIBODY 9.67 index N Index (IGG) 16:42:00 Interpretation ----- <0.90 Not consistent with Immunity 0.90-0.99 Equivocal > or=1.00 Consistent with Immunity The presence of rubella IgG antibody suggests immunization or past or current infection withrubella virus.Test performed at [facility] [id number] [facility] [place] [address]Aotebyf r: MOISES LEE DO,MPH Panel Description: HIV 1/2 ANTIGEN/ANTIBODY,FOURTH GENERATION W/RFL HIV NON-REACTIVE NON-REACTIVE N HIV-1 antigen and HIV-1/HIV- 2 antibodies were AG/AB, 16:42:00 notdetected. There is no laboratory evidence of 4TH GEN HIVinfection. PLEASE NOTE: This information has been disclosed toyou from records whose confidentiality may beprotected by state law. If your state requires suchprotection, then the state law prohibits you frommaking any further disclosure of the informationwithout the specific written consent of the personto whom it pertains, or as otherwise permitted by law.A general authorization for the release of medical orother information is NOT sufficient for this purpose. For additional information please refer tohttp://education.YourPlace/faq/DUS703(This link is being provided for informational/educational purposes only.) The performance of this assay has not been clinicallyvalidated in patients less than 2 years old. Test performed at [facility] [id number] [facility] [place] [address]Lenyhqha: MOISES LEE DO,MPH Panel Description: ANTIBODY ID, TITER, AND TYPING, RBC ANTIBODY ANTI-D NEGATIVE A IDENTIFICATION: 16:42:00 TITER SEE BELOW <1:1 16:42:00 [id number] SEE NOTE This test is intended to 16:42:00 identify IgG antibodiesimplicated in hemolytic diseases of the .It does not routinely detect IgM antibodies andthus is not suitable for screening for irregularantibodies prior to transfusion. This assay is a screening test for the detection of red blood cell antibodies. The test is not to be used for pretransfusion screening or for the medical management of an alloimmunized .REPORT COMMENT:FASTING:NOTest performed at [facility] [id number] [facility]ENTER[facility] [place] [address]Lvammaht: MOISES LEE DO,MPH Panel Description: Bacteria identified in Urine by Culture CULTURE, URINE, SEE NOTE CULTURE, URINE, ROUTINE MICRO ROUTINE 16:40:00 NUMBER: [id number] TEST STATUS: FINAL SPECIMEN SOURCE: URINE SPECIMEN QUALITY: ADEQUATE RESULT: Multiple organisms present, each less than 10,000 CFU/mL. These organisms, commonly found on external and internal genitalia, are considered to be colonizers. No further testing performed.REPORT COMMENT:RFASTING:UNKNOWNTest performed at [facility] [id number] [place] [address]Eaewizya: MOISES ELE DO,MPH Panel Description: Pap Smear With HPV Reflex If ASCUS Document Panel Description: CHLAMYDIA/N. GONORRHOEAE RNA, TMA CHLAMYDIA NOT DETECTED NOT DETECTED N TRACHOMATIS RNA, 16:46:00 TMA NEISSERIA NOT DETECTED NOT DETECTED N GONORRHOEAE RNA, 16:46:00 TMA [id number] SEE NOTE This test was 16:46:00 performed using the APTIMA COMBO2 Assay([employer] The analytical performance characteristics of this assay, when used to test SurePath specimens havebeen determined by [employer]. REPORT COMMENT:FASTING:UNKNO WNTest performed at [facility] [id number] [place] [address]Tqsxqpzw: MOISES LEE DO,MPH Advance Directives Directive Yes / No Effective Date File Name Unknown Encounters Encounter Practice Location Reason(s) Diagnoses Date Provider Care Team Description For Visit Members Robin Zaidi Smoking (tobacco) Sobbing Referring In Womens complicating 0-201 Buster. Provider: [facility], , first [address] trimesterEncntr Medical [address] L, 1522, screen for Center [address], [address], [place], [place], mode of Suite [address] [place], [id number], transmissEncounter 120[place], [address]. [place] for screening for [place], tel: tel: ot infec/parastc [place], [phone] [phone] diseasesEncounter [address], for suprvsn of [place]. normal , tel: first [phone] trimesterEncounter for screening of uafoot28 weeks gestation of Associates Dejuan Personal history of Mcl[place] Referring In Womens comp of preg, Lula. Provider: Health PA, [place] and the 7 [address] [facility] L, 1522, [place] [address], [place], [place], 120, Center [place], [id number], [place], [address]. [place], tel: tel: [phone] , [place]. tel: [phone] Family History Family Member Diagnosis Age At [...] Insurance type Covered green party ID Authorization(s) BC Out Of State [id number] Social History Type Description Quantity Date Captured Alcohol Use Details No Caffeine Use Details soda 3 cups per day Tobacco Use Status Smoking Status Current every day smoker Smoking Tobacco Use Cigarette: No Details Available Cigarette: 10 Cigarettes per day Details Vital Signs Date / Height Weight BMI Pulse Blood Temperature Respiratory Body Head BMI Time: Rate Pressure Rate Surface Circumference percentile Area 115.40 19.2 102/63 -2017 lbs 0 mm[Hg] 3:34 kg/m PM eter (2) Chief Complaint And [...] tobacco (ask, advise, assess, assist and arrange) sexual activity alcohol illicit / recreational drugs use of any medications (including supplements, vitamins, herbs, OTC drugs) smoking counseling domestic violence seat belt use childbirth classes / hospital facilities hospital registration genetic testing new ob handbook
--- OUTSIDE RECORDS SUMMARY | 2017-03-03 08:34 | External Medical Summary | Continuity of Care Document ---
:1994 Author Organization [facility] Address [address] [place], [place] [phone] Phone Care Team Providers Name Role Phone [...] Procedures Procedure Date OB Visit No Charge Antibody Screen, RBC Venpnctr fngr/heel/ear stick routne Results Test Name Date and Time Measure Units Reference Range Abnormal Flag Comments Panel Description: ANTIBODY SCREEN, RBC W/REFL ID, TITER AND AG ANTIBODY SCREEN, NO ANTIBODIES N Historical records RBC W/REFL ID, 16:25:00 DETECTED indicate the TITER AND AG patient's plasmapreviously contained antibodies to the D antigen.The antibody is not detectable in the current sample.Clinical correlation is suggested. Reference range No antibodies detected This assay is a screening test for the detection of red blood cell antibodies. The test is not to be used for pretransfusion screening or for the medical management of an alloimmunized . Test performed at [facility] [id number] [place] [address]Sxjsakts: MOISES LEE DO,MPH Advance Directives Directive Yes / No Effective Date File Name Unknown Encounters Encounter Practice Location Reason(s) Diagnoses Date Provider Care Team Description For Visit Members Associates Dejuan Supervision of Sobbing Referring In Womens other high risk 2- [place]. Provider: Falguni GASCA, pregnancies, second [address] trimesterSmoking Medical Jad L, 1522, (tobacco) Center [address] [place], [place], [place], , second [address] [employer], , [id number] weeks 120[place], [address]. [place] gestation of [place], tel: tel: pregnancyType A PR, [id number] blood, Rh negative [address], [place]. tel: [phone] Associates Dejuan Smoking (tobacco) Sobbing Referring In Womens complicating 0-201 [place]. Provider: Falguni GASCA, , first Kathy PO Box trimesterEncntr Medical Jad L, 1522, screen for Center [address] [place], infections w [place], [place], mode of [address] [employer], , transmissEncounter 120[place], [address]. [place] for screening for [place], tel: tel: oth infec/parastc PR, [phone] 593611 diseasesEncounter [address], for suprvsn of [place]. normal , tel: first [phone] trimesterEncounter for screening of [id number] weeks gestation of Associates Dejuan Personal history of Apr-2 [place]cl[place] Referring In Womens comp of preg, 8- [facility]. Provider: Falguni GASCA, [place] and the 7 [address] puerp Medical Jad L, 1522, Center [address] [place], [address], [place], [facility], [employer], [id number], [place], [address]. [place], tel:+[phone] tel:[phone] [address] , [place]. tel:[phone] Family History Family Member Diagnosis Age At [...] Unknown Payers Payer name Insurance type Covered libertarian ID Authorization(s) BC Out Of State [id number] Social History Type Description Quantity Date Captured Alcohol Use Details No Caffeine Use Details Unknown Tobacco Use Status Smoking Status Current every day smoker Vital Signs Date / Height Weight BMI Pulse Blood Temperature Respiratory Body Head BMI Time: Rate Pressure Rate Surface Circumference percentile Area 115.90 19.2 117/ lbs 9 mm[Hg] 3:32 kg/m PM eter (2) Chief Complaint And Reason For Visit Unknown Chief Complaint And Reason For Visit Reason For Referral Reason For Referral Unknown Plan Of Care Date Type Action Status Goal Tobacco cessation counseling completed Goal Tobacco cessation counseling completed Appointment Khushi Singh BOOKED Appointment Khushi Singh BOOKED Date Type Problem [...]
--- OUTSIDE RECORDS SUMMARY | 2017-03-03 08:34 | External Medical Summary | Continuity of Care Document ---
:1994 Author Organization [facility] Allergies Active Description Code Type Severity Reaction Onset Reported/ Identified Relationship Clinical to Patient Status Yes No Known 64695 3 N/A N/A Drug 0 Allergies Medications There is no data. Problems Date Dx Coded Attending Type Code Diagnosis Diagnosed By 11/17/2016 Buster Hicks O09.892 Supervision of L other high risk pregnancies, second trimester 11/17/2016 Buster Hicks Z34.82 Encounter for L suprvsn of normal , second trimester 11/17/2016 Buster Hicks Z3A.22 22 weeks gestation L of 12/15/2016 Buster Hicks O09.892 Supervision of L other high risk pregnancies, second trimester 12/15/2016 Buster Hicks Z3A.26 26 weeks gestation L of 12/15/2016 Buster Hicks Z67.11 Type A blood, Rh L negative 12/15/2016 Buster Hicks O09.892 Supervision of L other high risk pregnancies, second trimester 12/15/2016 Buster Hicks Z3A.26 26 weeks gestation L of 12/15/2016 Buster Hicks Z67.11 Type A blood, Rh L negative 01/16/2017 Buster Hicks O26.843 Uterine size-date L discrepancy, third trimester 01/16/2017 Buster Hicks Z3A.30 30 weeks gestation L of 02/16/2017 Buster Hicks O26.13 Low weight gain in L , third trimester 02/16/2017 Buster Hicks Z3A.35 35 weeks gestation L of Procedures Code [place] [address] Ultrasnd exam 11/17/2016 of preg uterus, compl 68894 OB Visit No 12/15/2016 Charge 05701 Immuniz 12/15/2016 admnin, 1 vac, sngl/combo 97701 Flu Vaccine - 12/15/2016 Quadrivalent 91717 Immuniz 12/29/2016 admnin, 1 vac, sngl/combo 88911 TDAP VACCINE 12/29/2016 >7 IM 17085 Ultrasnd preg 01/16/2017 uterus, flwup/repeat 05132 Ultrasnd preg 02/16/2017 uterus, flwup/repeat Results There is no data. Encounters ACCT No. Visit Discharge Status Pt. Type Provider Facility Loc./Unit Complaint Date/Time [id number] 02/23/2017 02/23/2017 [facility] Out[facility] [place], 10:20:00 23:59:59 Buster L [id number] 02/22/2017 02/22/2017 [facility] Outpatient [place], 10:58:00 23:59:59 Buster L [id number] 02/16/2017 02/16/2017 CLS Outpatient [place], 09:10:00 23:59:59 Buster L [id number] 02/16/2017 02/16/2017 CLS Outpatient [place], 08:45:00 23:59:59 Buster L [id number] 01/30/2017 01/30/2017 CLS Outpatient [place], 10:00:00 23:59:59 Buster L [id number] 01/16/2017 01/16/2017 CLS Outpatient [place], 10:30:00 23:59:59 Buster L [id number] 01/16/2017 01/16/2017 CLS Outpatient [place], 09:45:00 23:59:59 Buster L [id number] 12/29/2016 12/29/2016 CLS Outpatient [place], 13:30:00 23:59:59 Buster L [id number] 12/15/2016 12/15/2016 CLS Outpatient [place], 14:25:00 23:59:59 Buster Hernandez [id number] 11/17/2016 11/17/2016 CLS Outpatient [place], 14:30:00 23:59:59 Buster L [id number] 11/17/2016 11/17/2016 CLS Outpatient [place], 14:15:00 23:59:59 Buster Hernandez [id number] 11/10/2016 11/10/2016 CLS Outpatient Lopez, 16:35:00 23:59:59 Yunier Kowalski [id number] 11/10/2016 11/10/2016 CLS Outpatient [place], 16:23:00 23:59:59 Buster Hernandez [id number] 10/11/2016 10/11/2016 CLS Outpatient [place], 15:30:00 23:59:59 Buster Hernandez [id number] 09/01/2016 09/01/2016 CLS Outpatient [place], 11:55:00 23:59:59 Buster Hernandez [id number] 08/29/2016 08/29/2016 CLS Outpatient [place], 15:00:00 23:59:59 Buster Hernandez [id number] 06/17/2016 06/17/2016 CLS Outpatient [place], 14:00:00 23:59:59 Lula Apodaca
--- OUTSIDE RECORDS SUMMARY | 2017-03-03 08:34 | External Medical Summary | Continuity of Care Document ---
:1995 Author Organization [facility] Address [address] [place], [place] [id number] Phone Care Team Providers Name Role Phone Kathy Street MD Unavailable Unavailable Allergies, Adverse Reactions, Alerts Substance Reaction Severity Status No Known Drug Allergies Unknown Active Medications Medication Instructions Dosage Effective Dates (start - Status Comments stop) ORAL TABLET - Active Problems Condition Effective Dates (start - stop) Clinical Status Nicotine dependence, cigarettes, - uncomplicated Supervision of [...] - mother 10 weeks gestation of - Supervision of other [...] ANTIBODIES N Historical records indicate SCREEN, RBC 14:58:00 DETECTED the patient's W/REFL ID, plasmapreviously contained TITER AND AG antibodies to the D antigen.The antibody is not detectable in the current sample.Clinical correlation is suggested. Reference range No antibodies detected This assay is a screening test for the detection of red blood cell antibodies. The test is not to be used for pretransfusion screening or for the medical management of an alloimmunized . REPORT COMMENT:FASTING:NOTest performed at [facility] [id number] [place] [address]Aidhpkom: MOISES LEE DO,MPH Advance Directives Directive Yes / No Effective Date File Name Unknown Encounters Encounter Practice Location Reason(s) Diagnoses Date Provider Care Team Description For Visit Members Robin Zaidi Nicotine Oct- Sobbing Referring In Womens dependence, [place]. Provider: Falguni GASCA, cigarettes, [address], rvision of other Center [address] [place], high risk [place], [place], pregnancies, [address], [id number], second [place], [address]. [place] trimesterType A Dejuan, tel:+ tel:[phone] blood, Rh [place], [id number] negative [id number], [place]. tel: [phone] Robin Zaidi Supervision of Sobbing Referring In Womens Ultrasound other high risk [place]. Provider: Falguni GASCA, pregnancies, 7 [address], trimesterEncounte [facility] [address], r for suprvsn of [place], [place], normal , [address], [id number], second [address], [place], [address]. [place] [id number] weeks Dejuan, tel:+ tel:[phone] gestation of [place], [id number], [place]. tel: [phone] Robin Zaidi Supervision of Sobbing Referring In Womens other high risk [place]. Provider: Falguni GASCA, pregnancies, 7 [address], trimesterSmoking Center [address], (tobacco) [place], [place], complicating [address], , , [address], [place], [address]. [place] [email or web address] weeks Zaidi, tel: tel: gestation of [place], [phone] pregnancyType A [id number], blood, Rh [place]. negative tel: [phone] [facility] Smoking (tobacco) Aug- Sobbing Referring In Womens complicating 0-201 Buster. Provider: [facility], , first [address], screen for Center [address], infections w sexl [place], [place], mode of [address], , transmissEncounte [address], [place], [address]. [place] r for screening Zaidi, tel: tel: for oth [place], [phone] infec/parastc [address], diseasesEncounter [place]. for suprvsn of tel: normal , [phone] first trimesterEncounte r for screening of [id number] weeks gestation of [facility] Personal history Apr-2 [place] Referring In Womens of comp of preg, 8-201 Lula. Provider: Falguni GASCA, frank[place] and the [address], Center [address] [facility] [address], , [place], [place], [facility], [place], [id number], [place], [address]. [place], tel: tel: [phone] , [place]. tel: [phone] Family History Family Member Diagnosis Age At [...] name Insurance type Covered libertarian ID Authorization(s) BCBS Out Of State [id number] Social History Type Description Quantity Date Captured Alcohol Use Details No Caffeine Use Details Unknown Tobacco Use Status Smoking Status Current every day smoker Vital Signs Date / Height Weight BMI Pulse Blood Temperature Respiratory Body Head BMI Time: Rate Pressure Rate Surface Circumference percentile Area 125.80 20.9 114/65 -2017 lbs 3 mm[Hg] 2:55 kg/m PM eter (2) Chief Complaint And Reason For Visit Unknown Chief Complaint And Reason For Visit Reason For Referral Reason For Referral Unknown Plan Of Care Date Type Action Status Goal Tobacco cessation counseling completed Goal Tobacco cessation counseling completed Appointment Khushi Singh BOOKED Future Order: Radiology Order Complete OB Ultrasound > 14 Ordered Weeks ([id number]) Date Type Problem Goal Intervention Status Start [...]
[2017-03-03] MEDS ORDERED: LIDOCAINE 1% (10mg/ml) 2mL INJ PF SDV ID PRN (09:01)
[2017-03-03] MEDS ORDERED: CARBOPROST 250 MCG/ML INJECTION IM PRN (09:01)
[2017-03-03] MEDS ORDERED: METHYLERGONOVINE 0.2 MG/ML INJECTION IM PRN (09:01)
[2017-03-03] MEDS ORDERED: ACETAMINOPHEN 500 MG TABLET PO PRN ×2 (09:01→14:34)
[2017-03-03] MEDS ORDERED: MAG-AL + SIM ORAL LIQUID 30ml PO PRN ×2 (09:01→14:34)
[2017-03-03] MEDS ORDERED: CALCIUM CARBONATE Chewable 500mg TABLET PO PRN ×2 (09:01→14:34)
--- NOTE | 2017-03-03 09:34 | OB/GYN Progress Note ---
- Pain Control Pain control: Tolerating well - Pelvic Exam Dilation (cm): 4 Effacement (%): 80 station: -3 Amniotic membrane status: Intact - Contractions Monitor mode: External Contraction pattern: Regular Contraction intensity: Moderate - Status status: Category l - Assessment and Plan Assessment: active labor Plan: continuous present management Comments: AROM clear fluid tolerated by Mom and fetus.
[2017-03-03 10:05] VITALS: BMI 24.5
[2017-03-03] MEDS: LR 1,000 ML IV PRN ×2 (10:21→13:04)
--- NOTE | 2017-03-03 10:21 | Anesthesia Preoperative Report ---
Anesthesia Epidural/Spinal Rec - Date and Time Date: 03/03/17 Procedure: Labor Epidural Plan: Epidural - Vital Signs Vital Signs: Temperature 98.1 F 03/03/17 10:13 Pulse Rate 85 03/03/17 10:13 Respiratory Rate 20 03/03/17 10:13 Blood Pressure 118/69 03/03/17 10:13 Pulse Oximetry 100 03/03/17 10:13 NPO since: 0800 milk /Para: P:1 Height and Weight: 5'4 - Medictaions & Allergies Inpatient Medications: Current Medications Acetaminophen (Tylenol) 500 - 1,000 mg PO Q4H PRN PRN Reason: Pain Al Hydroxide/Mg Hydroxide (Maalox Plus) 30 ml PO Q3H PRN PRN Reason: Indigestion Calcium Carbonate (Tums) 500 - 1,000 mg PO Q2H PRN PRN Reason: Indigestion Carboprost Tromethamine (Hemabate) 250 mcg IM O PRN PRN Reason: .Downtime Lactated Ringer's (Lactated Ringers) 1,000 mls @ 999 mls/hr IV .Q1H1M PRN Lidocaine HCl (Xylocaine-Mpf 1% Vial) 0.2 mg ID O PRN PRN Reason: IV Start Methylergonovine Maleate (Methergine) 0.2 mg IM O PRN Misoprostol (Cytotec) 800 mcg MD ONCE PRN Allergies/Adverse Reactions: Allergies Allergy/AdvReac Type Severity Reaction Status Date / Time No Known Allergies Allergy Verified 03/03/17 10:10 - Home Medications Home Medications: Home Medications Medication Instructions Recorded Confirmed Type No known Home medications [No home 03/03/17 03/03/17 History meds] - Medical History Respiratory: DENIES: Asthma Cardiovascular: DENIES: Angina, Hypertension Gastrointestional: DENIES: Gastroesophageal Reflux Disease Other History: Reports: Now - Surgical History Reproductive Surgery/Treatment: DENIES: Section Anesthesia Reactions: None Hx Family Anesthesia Reaction: No History of Motion Sickness: No - Social History Smoking Status: Current every day smoker Second Hand Exposure: Yes Substance Use Type: does not use Alcohol Intake Frequency: does not drink - Pertinent Findings Lab Data: CBC and BMP 03/03/17 09:27 - Physical Exam Respiratory Exam: lungs clear, bilateral breath sounds equal Cardiovascular Exam: regular rate and rhythm - Airway Assessment Mallampati Score: II TMD: 3 Fingerbreadths Neck Extension: good Teeth: poor dentation Overall Assessment: no airway concerns - ASA ASA Score: 2 - Discussion Discussion: Discussed risks/options/alternatives of anesthesia and questions answered. Patient consents. Nursing pain assessment noted. Anesthesia Discussion: spouse Attestation Statement: Prior to the delivery of any anesthetic medication, I examined the patient, developed the plan, obtained the patient's consent and discussed the risk and benefits of the procedure with the patient/guardian.
[2017-03-03] MEDS ORDERED: ROPIVACAINE 1% 10MG/ML INJ 200 MG, SUFentanil 50 MCG in NS 100 ML EPI PRN (10:22)
[2017-03-03] MEDS ORDERED: NALOXONE 0.4 MG/ML INJECTION IVP PRN (10:22)
[2017-03-03] MEDS ORDERED: ONDANSETRON 4 MG/2 ML INJECTION IVP PRN (10:22)
[2017-03-03] MEDS ORDERED: DiphenhydrAMINE 50 MG/ML INJECTION IVP PRN (10:22)
[2017-03-03] MEDS ORDERED: SALINE FLUSH 10ml SYRINGE IV PRN (14:34)
[2017-03-03] MEDS ORDERED: DiphenhydrAMINE 25 MG CAPSULE PO PRN (14:34)
[2017-03-03] MEDS ORDERED: HYDROCORTISONE 2.5% CREAM 30gm RECTALLY PRN (14:34)
[2017-03-03] MEDS ORDERED: OXYTOCIN DRIP 30 UNIT/500 ML ML IV SCH (14:45)
--- NOTE | 2017-03-03 15:15 | OB/GYN Procedure Note ---
Delivery date: 03/03/17 Induction method: none Delivery augmentation: rupture of membranes Delivery monitor: external FHT Route of delivery: Episiotomy description: None Laceration description: None Anesthesia type: Epidural Disposition: floor - Cable Baby 1 presentation: Vertex Placenta delivery description: Spontaneous cord vessel description: 3 Vessels at 1 minute: 8 at 5 minutes: 9
[2017-03-03] MEDS: IBUPROFEN 800 MG TABLET PO PRN (17:43)
[2017-03-03] MEDS: HYDROCODONE/APAP 5mg/325mg TABLET PO PRN (20:41)
[2017-03-04] MEDS: HYDROCODONE/APAP 5mg/325mg TABLET PO PRN ×3 (04:57→20:33)
[2017-03-04] MEDS: IBUPROFEN 800 MG TABLET PO PRN ×2 (04:57→17:36)
--- NOTE | 2017-03-04 07:31 | OB/GYN Progress Note ---
OB-PP Progress Note - General PPD1 Maternal Group B Strep: Negative Maternal blood type: A- Maternal Rubella Status: Immune - Subjective Date: 03/04/17 Lochia: Minimal Pain: controlled Voiding: voiding Nausea or Vomiting Present: No - Objective Vital Signs: Last Vital Signs Temp 98.0 F 03/03/17 19:00 Pulse 67 03/03/17 19:00 Resp 18 03/03/17 19:00 BP 102/52 03/03/17 19:00 Pulse Ox 100 03/03/17 10:13 General: alert and oriented Cardiovascular: regular rate,rhythm Respiratory: non-labored Abdomen: fundus firm Extremities: non-tender Edema: none Laboratory: Laboratory Results - last 24 hr 03/03/17 03/03/17 03/03/17 09:27 09:27 17:28 WBC 19.0 H RBC 3.98 L Hgb 12.4 Hct 37.3 MCV 93.7 MCH 31.2 MCHC 33.2 RDW Std Deviation 42.1 Plt Count 166 MPV 10.9 Hgb /Adult Ratio Blood Type A Negative Antibody Screen Positive A* Antibody Identification Immune D RhIG Candidate? Is a candidate 03/03/17 19:19 WBC RBC Hgb Hct MCV MCH MCHC RDW Std Deviation Plt Count MPV Hgb /Adult Ratio 0.0000 Blood Type Antibody Screen Antibody Identification RhIG Candidate? - Assessment Assessment: SP, - Plan Plan: routine care, rhophylac, discharge home (Dismissal to home with . )
[2017-03-04] MEDS: DOCUSATE CALCIUM 240 MG CAPSULE PO SCH (10:45)
[2017-03-04] MEDS ORDERED: RHO(D) IMMUNE GLOBULIN 300 MCG/2 ML INJECTION IVP ONE (10:45)
--- NOTE | 2017-03-04 10:46 | Pharmacy Consult ---
Pharmacy Consult-Rhophylac - Laboratory Information 03/03/17 03/03/17 03/03/17 09:27 17:28 19:19 Hgb /Adult Ratio 0.0000 Blood Type A Negative RhIG Candidate? Is a candidate - Consult Information Rh FACTOR CONSULT: Mother Blood Type = A negative Child Blood Type = A positive Hgb / Adult Ratio = 0.0000 Will give Rho D Immunglobulin 300mcg IV x 1 dose. Thank you for the Protocol, Guevara Rangel, Pharmacist.
--- NOTE | 2017-03-04 14:25 | Operative Note ---
DATE OF DELIVERY 03/03/2017 NARRATIVE This was a normal spontaneous vaginal delivery of a live male infant named Octavio over intact perineum in the OA position with epidural anesthesia. No meconium was noted. No nuchal cord was noted. There was spontaneous delivery of the placenta with a three-vessel cord. No lacerations were noted. Estimated blood loss was 50 mL. The patient did well and went to the floor in stable condition. [facility]
--- NOTE | 2017-03-04 15:29 | Anesthesia Postoperative Note ---
- Date and Time Date: 03/04/17 Time: 15:28 - Status Patient Participated in Evaluation: Patient Participated in Person Vital Signs: Temperature 97.9 F 03/04/17 09:40 Pulse Rate 75 03/04/17 09:40 Respiratory Rate 20 03/04/17 09:40 Blood Pressure 93/51 03/04/17 09:40 Pulse Oximetry 97 03/04/17 09:40 Respiratory Function: Airway Patent Cardiovascular Function: Regular Pulse Mental Status: Alert and Oriented Pain Intensity: 0 Hydration: Taking PO Fluids Complications During Recover: None Apparent Post Anesthesia Care Notes: full motor and sensation returned - Follow-Up Instructions Instructions: Per Surgeon
[2017-03-05] MEDS: IBUPROFEN 800 MG TABLET PO PRN (06:59)
[2017-03-05 07:08] VITALS: BP 104/56; PULSE 88; RESP 18; TEMP 98.1; O2SAT 98
[2017-03-05] MEDS: DOCUSATE CALCIUM 240 MG CAPSULE PO SCH (10:37)
--- NOTE | 2017-03-05 11:10 | OB/GYN Progress Note ---
OB-PP Progress Note - General PPD2 Maternal Group B Strep: Negative Maternal blood type: A- Maternal Rubella Status: Immune - Subjective Date: 03/05/17 Lochia: Minimal Pain: controlled Voiding: voiding Nausea or Vomiting Present: No - Objective Vital Signs: Last Vital Signs Temp 98.1 F 03/05/17 07:00 Pulse 88 03/05/17 07:00 Resp 18 03/05/17 07:00 BP 104/56 03/05/17 07:00 Pulse Ox 98 03/05/17 07:00 General: alert and oriented Cardiovascular: regular rate,rhythm Respiratory: non-labored Abdomen: fundus firm Extremities: non-tender Edema: none - Assessment Assessment: SP, - Plan Plan: routine care, rhophylac, discharge home
== END 2017-03-05 12:00 | disposition home or self-care (01) | DRG 775 ==
LOC: MC 08:26 → OBOBS 08:28 → MC 08:59
PROVIDERS: ADMIT Obstetrics & Gynecology; ATTEND Obstetrics & Gynecology